=== PATIENT | female | born 1995 | race Caucasian/White ===

== ENCOUNTER 2018-09-27 03:41 | Emergency (ER) | payer SELFPAY ==
[~2018-09-27] VITALS: Ht 149.9 cm; Wt 63.0 kg
[2018-09-27 03:46] VITALS: BP 115/67
[2018-09-27] MEDS ORDERED: HYDROcodone/APAP 10/325 MG 1 TAB TAB PO ONE (04:05)
[2018-09-27] MEDS ORDERED: ONDANSETRON 4 MG ODT PO ONE (04:20)
[2018-09-27 05:27] VITALS: BP 115/67
== END 2018-09-27 05:27 | disposition home or self-care (01) ==
LOC: MED 03:41
DX: S06.0X0A Concussion without loss of consciousness, initial encounter (principal); S86.812A Strain of other muscle(s) and tendon(s) at lower leg level, left leg, initial encounter; S16.1XXA Strain of muscle, fascia and tendon at neck level, initial encounter; V23.4XXA Motorcycle driver injured in collision with car, pick-up truck or van in traffic accident, initial encounter; Y93.89 Activity, other specified; Y92.89 Other specified places as the place of occurrence of the external cause; Y99.8 Other external cause status
CPT/HCPCS: 70450; 72125; 81002; 81025; 99284; Q0162